=== PATIENT | female | born 1980 | race African-American/Black ===

== ENCOUNTER 2017-09-13 19:05 | Emergency (ER) | payer OTHER ==
[2017-09-13] MEDS ORDERED: Ondansetron HCl/PF 4 MG/2 ML Vial ONE (19:15)
[2017-09-13] MEDS ORDERED: Morphine 4 MG/ML VIAL ONE (19:15)
[2017-09-13 19:42] LABS: #Basophils 0.1 thou/uL (0.0-0.2); #Eosinphils 0.1 thou/uL (0.0-0.7); #Lymphocytes 5.2 thou/uL (1.20-3.40); #Monocytes 0.6 thou/uL (0.11-0.59); #Neutrophils 5.4 thou/uL (1.40-6.50); %Basophils 1.3 % (0.0-1.0); %Lymphocytes 45.7 % (21.0-51.0); %Monocytes 5.1 % (0.0-10.0); Hemoglobin 13.3 g/dL (12.0-16.0); Mean Corpuscular HGB CONC 33.4 g/dL (32.0-36.0); Mean Corpuscular Hemoglobin 28.9 pg (27.0-31.0); Mean Corpuscular Volume 86.6 fl (81.0-99.0); Mean Platelet Volume 8.7 fL (7.4-10.4); Platelet Count 226 thou/uL (130-400); RBC Distribution Width 11.9 % (11.5-14.5); Red Blood Cell (RBC) Count 4.59 mill/uL (4.20-5.40); White Blood Cell (WBC) Count 11.5 thou/uL (4.8-10.8)
[2017-09-13 19:48] LABS: BHCG - Serum Negative (NEGATIVE); Pregs Control Background? CLEAR/WHITE (CLR/WHITE); Pregs Control Bar Appear? YES (CONTROL BAR)
[2017-09-13 20:03] LABS: ALT (SGPT) 45 U/L (8-55); AST (SGOT) 51 U/L (5-34); Albumin 4.5 g/dL (3.5-5.0); Alkaline Phosphatase 68 U/L (40-150); Anion Gap 18 mmol/L (10-20); BUN (Urea Nitrogen) 12 mg/dL (7.0-18.7); Bilirubin, Total 0.3 mg/dL (0.2-1.2); Calc. Creatinine Clearance 0 mL/min (70-130); Carbon Dioxide 20 mmol/L (22-29); Chloride 103 mmol/L (98-107); Estimated GFR-MDRD 86; Globulin 3.3 g/dL (2.4-3.5); Glucose 122 mg/dL (70-105); Lipase 19 U/L (8-78); Potassium 4.2 mmol/L (3.5-5.1); Protein, Total 7.8 g/dL (6.0-8.3); Sodium 137 mmol/L (136-145)
[2017-09-13 21:13] LABS: Bilirubin Negative (Negative); Blood, Urine Negative (Negative); Clarity CLEAR (Clear); Glucose, Urine (Dipstick) Negative (Negative); Leukocyte Negative (Negative); Nitrite Negative (Negative); Protein, Urine (Dipstick) Trace mg/dL (Neg-Trace); Specific Gravity, Urine 1.016 (1.002-1.036); pH, Urine 7.5 (5.0-9.0)
--- NOTE | 2017-09-13 22:17 | CT ---
ABDOMEN AND PELVIC CT SCAN WITHOUT IV CONTRAST: 09/13/17 HISTORY: 37-year-old female with history of right sided abdominal pain, history of prior appendectomy and ooph orectomy. There are some minimal dependent changes noted in the posterior inferior lungs. Borderline sized fatt y liver with some fatty sparring adjacent to the gallbladder. Visualized pancreas, spleen, and adrena l glands are unremarkable. No renal calculus or acute obstruction. There is an approximately 2.5 x 4 cm diameter fairly well circumscribed low attenuation focus in the left adnexal region, evidence f or a left ovarian cyst. IMPRESSION: Fatty changes in the liver. No renal calculus or acute obstruction. No bowel obstruction, abscess adenopathy or abnormal fluid collection. IUD in place within the uterus. Evidence for a left ovarian cyst. POS: [facility]
== END 2017-09-13 21:27 | disposition home or self-care (01) ==
LOC: ERS 19:05
DX: R10.9 Unspecified abdominal pain (principal); I10 Essential (primary) hypertension; F17.210 Nicotine dependence, cigarettes, uncomplicated; Z79.899 Other long term (current) drug therapy
CPT/HCPCS: 36415; 74176; 80053; 81003; 83690; 84703; 85025; 96361; 96374; 96375; J2270; J2405

== ENCOUNTER 2018-05-15 08:56 | Outpatient (CLI) | payer OTHER ==
--- NOTE | 2018-05-15 10:21 | RAD ---
LUMBAR SPINE FOUR VIEW SERIES: Indication: Intervertebral disc disorder with radiculopathy of lumbar region. FINDINGS: Lumbar spine vertebral body heights and alignment are preserved. Flexion and extension views reveal n o obvious translational motion. Incidental note of an intrauterine device along the pelvis. IMPRESSION: No acute osseous abnormality of the lumbar spine. POS: [facility]
--- NOTE | 2018-05-15 12:13 | MRI ---
MRI LUMBAR SPINE WITHOUT CONTRAST: DATE: 05/15/2018. HISTORY: Degenerative disk disease, low back pain with right-sided sciatica. TECHNIQUE: Multiplanar, multisequence MR imaging of the lumbar spine without contrast: FINDINGS: There is an incompletely imaged T2 hyperintense lesion within the left hemipelvis measuring 4.4 cm in greatest dimension. This likely represents a cystic adnexal lesion of left ovary. No focal area of osseous marrow edema is noted on the sagittal STIR imaging. Lumbar vertebral body h eight and alignment appears within normal limits. On the basis of 5 lumbar-type vertebral bodies, conus medullaris terminates at the L1 level. T12-L1: Intervertebral disk height and signal intensity within normal limits with no significant dmitri tral canal or neural foraminal stenosis. L1-2: Intervertebral disk height and signal intensity within normal limits with no significant centr al canal or neural foraminal stenosis. L2-3: Intervertebral disk height and signal intensity within normal limits with no significant centr al canal or neural foraminal stenosis. L3-4: Intervertebral disk height and signal intensity within normal limits with no significant centr al canal or neural foraminal stenosis. L4-5: Intervertebral disk height and signal intensity within normal limits with no significant centr al canal or neural foraminal stenosis. L5-S1: Disk space narrowing and disk desiccation with mild disk bulge. There is a disk extrusion in the central/right paracentral region with inferior migration causing severe right lateral recess balaji nosis and significant right-sided central canal stenosis. This extruded disk measures at least 1.1 c m in AP dimension. No significant neural foraminal stenosis. Imaged retroperitoneal structures demonstrate no acute findings. IMPRESSION: 1. Central/right paracentral disk extrusion at L5-S1 with significant right-sided central canal sten osis/lateral recess stenosis. 2. T2 hyperintense lesion in right hemipelvis. POS: [facility]
== END 2018-05-15 08:57 | disposition home or self-care (01) ==
LOC: BICMRI 08:56
PROVIDERS: ATTEND Nurse Practitioner Family
DX: M51.17 Intervertebral disc disorders with radiculopathy, lumbosacral region (principal); M48.07 Spinal stenosis, lumbosacral region
CPT/HCPCS: 72110; 72148

== ENCOUNTER 2021-01-13 13:52 | Outpatient (CLI) | payer BC | END 2021-01-13 13:53 | disposition home or self-care (01) | LOC: BICMRI 13:52 | PROVIDERS: ATTEND Specialist | DX: M51.17 Intervertebral disc disorders with radiculopathy, lumbosacral region (principal) | CPT/HCPCS: 72148 ==

== ENCOUNTER 2021-10-01 08:40 | Outpatient (CLI) | payer BC ==
[2021-10-01 09:36] LABS: Hemoglobin 11.7 g/dL (12.0-15.5); Mean Corpuscular HGB CONC 31.3 g/dL (32.0-36.0); Mean Corpuscular Hemoglobin 27.3 pg (27.0-33.0); Mean Corpuscular Volume 87.2 fl (81.6-98.3); Mean Platelet Volume 11.2 fl (7.4-10.4); Platelet Count 236 10x3/uL (150-450); RBC Distribution Width 14.8 % (11.5-14.5); Red Blood Cell (RBC) Count 4.29 10x6/uL (3.90-5.03); White Blood Cell (WBC) Count 7.9 10x3/uL (3.5-10.5)
[2021-10-01 09:50] LABS: INR-International Normal Ratio 0.9; PTT 27.2 sec (22.0-33.0)
[2021-10-01 09:53] LABS: Anion Gap 12 mmol/L (10-20); BUN (Urea Nitrogen) 14 mg/dL (7.0-18.7); Calc. Creatinine Clearance 0 mL/min (70-130); Calcium 9.5 mg/dL (7.8-10.44); Carbon Dioxide 26 mmol/L (22-29); Chloride 106 mmol/L (98-107); Glucose 112 mg/dL (70-105); Potassium 4.1 mmol/L (3.5-5.1); Sodium 140 mmol/L (136-145)
[2021-10-01 20:47] LABS: SARS-CoV-2 PCR by NAA Not Detected (NotDetected)
== END 2021-10-01 08:41 | disposition home or self-care (01) ==
LOC: LABBT 08:40
PROVIDERS: ATTEND Surgery
DX: Z01.818 Encounter for other preprocedural examination (principal); M51.16 Intervertebral disc disorders with radiculopathy, lumbar region; Z20.822 Contact with and (suspected) exposure to COVID-19
CPT/HCPCS: 80048; 85027; 85610; 85730; 93005; 93010; U0003; U0005

== ENCOUNTER 2021-10-06 10:35 | Observation (INO) | payer BC ==
[2021-10-06] MEDS ORDERED: Fentanyl 250 MCG/5 ML VIAL ONE (13:03)
[2021-10-06] MEDS ORDERED: Thrombin 5000 UNITS/5 ML VIAL ONE (13:05)
[2021-10-06] MEDS ORDERED: ceFAZolin (BATCH) 2 GM/100 ML BAG ONE (13:14)
[2021-10-06] MEDS ORDERED: Rocuronium Bromide 10 MG/ML (10ML VIAL) ONE (13:24)
[2021-10-06] MEDS ORDERED: Ketorolac Tromethamine 30 MG/ML VIAL ONE (13:24)
[2021-10-06] MEDS ORDERED: Ondansetron PF 4 MG/2 ML Vial ONE (13:24)
[2021-10-06] MEDS ORDERED: Lidocaine 1% PF 5 ML VIAL ONE (13:24)
[2021-10-06] MEDS ORDERED: Glycopyrrolate 0.2 MG/ML 5 ML SYRINGE ONE (13:24)
[2021-10-06] MEDS ORDERED: PROPOFOL 200 MG/20 ML VIAL ONE (13:24)
[2021-10-06] MEDS ORDERED: HYDROcodone/Acetaminophen 7.5/325 mg Tablet PO PRN (15:40)
[2021-10-06] MEDS ORDERED: traMADol HCl 50 MG TAB PO PRN (15:40)
[2021-10-06] MEDS ORDERED: Acetaminophen 325 MG TAB PO PRN (15:40)
[2021-10-06] MEDS ORDERED: Ondansetron PF 4 MG/2 ML Vial IVP PRN (15:40)
[2021-10-06] MEDS ORDERED: Acetaminophen/Codeine 30-300mg Tablet PO PRN (15:40)
[2021-10-06] MEDS ORDERED: hydrALAZINE 20 MG/ML VIAL SLOW IVP PRN (15:42)
[2021-10-06] MEDS ORDERED: tiZANidine HCl 4 MG TAB PO PRN (15:50)
[2021-10-06] MEDS ORDERED: HYDROmorphone 2 MG/ML VIAL SLOW IVP PRN (15:56)
[2021-10-06] MEDS ORDERED: PACU-Morphine 4MG/ML VIAL SLOW IVP PRN (15:56)
[2021-10-06] MEDS ORDERED: Promethazine HCl 25 MG/ML VIAL IM PRN (15:56)
[2021-10-06] MEDS ORDERED: Ketorolac Tromethamine 30 MG/ML VIAL IVP PRN (15:56)
[2021-10-06] MEDS ORDERED: Ondansetron HCl/PF 4 MG/2 ML Vial IVP PRN (15:56)
[2021-10-06] MEDS ORDERED: Promethazine HCl 25 MG/ML VIAL IVPB PRN (15:56)
[2021-10-06] MEDS ORDERED: Morphine Sulfate 2 MG/ML SYRINGE SLOW IVP PRN (15:56)
[2021-10-06] MEDS ORDERED: Meperidine HCl/PF 25 MG/ML VIAL SLOW IVP PRN (15:56)
[2021-10-06] MEDS ORDERED: Fentanyl 100 MCG/2 ML VIAL ONE ×2 (15:57→16:40)
[2021-10-06] MEDS ORDERED: Diazepam 5 MG TAB PO SCH (16:15)
[2021-10-06] MEDS ORDERED: Morphine 4 MG/ML VIAL SLOW IVP PRN (16:15)
[2021-10-06] MEDS ORDERED: Diazepam 5 MG TAB ONE (16:16)
[2021-10-06] MEDS ORDERED: Promethazine HCl 25 MG/ML VIAL ONE (16:41)
[2021-10-06] MEDS: Morphine 2 MG/ML VIAL SLOW IVP PRN ×2 (18:14→19:15)
[2021-10-06] MEDS: Sodium Chloride 0.9% 1,000 ML IV SCH (18:14)
[2021-10-06 18:36] VITALS: BMI 35.2
[2021-10-06] MEDS ORDERED: Pioglitazone HCl 45 MG TAB PO SCH (21:00)
[2021-10-06] MEDS ORDERED: Atorvastatin Calcium 20 MG TAB PO SCH (21:00)
[2021-10-06] MEDS: Gabapentin 300 MG CAP PO SCH (21:51)
[2021-10-06] MEDS: ceFAZolin (BATCH) 2 GM in Premix Bag 1 BAG IVPB SCH (21:55)
[2021-10-07] MEDS: ceFAZolin (BATCH) 2 GM in Premix Bag 1 BAG IVPB SCH (05:59)
[2021-10-07] MEDS: Sodium Chloride 0.9% 1,000 ML IV SCH (06:15)
[2021-10-07] MEDS: Gabapentin 300 MG CAP PO SCH (08:22)
[2021-10-07 08:24] VITALS: BP 107/68
[2021-10-07] MEDS ORDERED: Lisinopril 10 MG TAB PO SCH (09:00)
[2021-10-07] MEDS ORDERED: Alogliptin 25 MG TAB PO SCH (09:00)
[2021-10-07] MEDS ORDERED: Hydrochlorothiazide 25 MG TAB PO SCH (09:00)
[2021-10-07] MEDS ORDERED: Polyethylene Glycol 3350 17 GM Packet PO PRN (09:07)
[2021-10-07] MEDS ORDERED: Docusate 100 MG CAP PO SCH ×2 (09:15→21:00)
[2021-10-07 09:32] VITALS: TEMP 98.1
== END 2021-10-07 12:09 | disposition home or self-care (01) ==
LOC: SDC 10:35 → MSONC 15:40
PROVIDERS: ADMIT Surgery; ATTEND Surgery
PROC: 0SB40ZZ Excision of Lumbosacral Disc, Open Approach (ICD-10-PCS; principal; 2021-10-06)
PROC: 01NA0ZZ Release Lumbosacral Plexus, Open Approach (ICD-10-PCS; 2021-10-06)
DX: M51.17 Intervertebral disc disorders with radiculopathy, lumbosacral region (principal); Z79.84 Long term (current) use of oral hypoglycemic drugs; Z79.899 Other long term (current) drug therapy
CPT/HCPCS: 76000; 96365; 96375; 96376; G0378; J0690; J1885; J2270; J2405; J2550; J2704; J3010; J3370; J7050

== ENCOUNTER 2021-10-29 12:52 | Outpatient (CLI) | payer BC | END 2021-10-29 12:53 | disposition home or self-care (01) | LOC: BICMAMMO 12:52 | PROVIDERS: ATTEND Family Medicine | DX: Z12.31 Encounter for screening mammogram for malignant neoplasm of breast (principal); Z80.3 Family history of malignant neoplasm of breast | CPT/HCPCS: 77063; 77067 ==

== ENCOUNTER 2021-12-29 07:48 | Emergency (ER) | payer BC ==
[2021-12-29 08:07] LABS: #Basophils 0.1 thou/uL (0.0-0.2); #Eosinphils 0.1 thou/uL (0.0-0.7); #Lymphocytes 3.2 thou/uL (1.20-3.40); #Monocytes 0.5 thou/uL (0.11-0.59); #Neutrophils 6.4 thou/uL (1.40-6.50); %Basophils 0.9 % (0.0-1.0); %Eosinophils 0.7 % (0.0-10.0); %Monocytes 4.6 % (0.0-10.0); %Neutrophils 62.8 % (42.0-75.0); Hemoglobin 12.6 g/dL (12.0-16.0); Mean Corpuscular Hemoglobin 29.1 pg (27.0-31.0); Mean Corpuscular Volume 91.1 fL (78.0-98.0); Mean Platelet Volume 8.8 fL (7.4-10.4); Platelet Count 238 thou/uL (130-400); RBC Distribution Width 12.1 % (11.5-14.5); Red Blood Cell (RBC) Count 4.32 mill/uL (4.20-5.40); White Blood Cell (WBC) Count 10.2 thou/uL (4.8-10.8)
[2021-12-29 08:25] LABS: BHCG - Serum Negative (NEGATIVE); Pregs Control Background? CLEAR/WHITE (CLR/WHITE); Pregs Control Bar Appear? YES (CONTROL BAR)
[2021-12-29 08:32] LABS: ALT (SGPT) 16 U/L (8-55); AST (SGOT) 14 U/L (5-34); Albumin 4.3 g/dL (3.5-5.0); Alkaline Phosphatase 80 U/L (40-110); Anion Gap 17 mmol/L (10-20); BUN (Urea Nitrogen) 9 mg/dL (7.0-18.7); Bilirubin, Total 0.7 mg/dL (0.2-1.2); Calc. Creatinine Clearance 0 mL/min (70-130); Calcium 9.7 mg/dL (7.8-10.44); Carbon Dioxide 24 mmol/L (22-29); Chloride 103 mmol/L (98-107); Estimated GFR 83; Globulin 2.8 g/dL (2.4-3.5); Glucose 129 mg/dL (70-105); Lipase 18 U/L (8-78); Potassium 4.5 mmol/L (3.5-5.1); Protein, Total 7.1 g/dL (6.0-8.3); Sodium 139 mmol/L (136-145)
[2021-12-29] MEDS ORDERED: Morphine 4 MG/ML VIAL ONE ×2 (09:35→12:25)
[2021-12-29] MEDS ORDERED: Dicyclomine 20 MG/2 ML VIAL ONE (09:36)
[2021-12-29] MEDS ORDERED: Ondansetron PF 4 MG/2 ML Vial ONE (09:36)
[2021-12-29] MEDS ORDERED: Iopamidol-370 76% 500 ML 1 ML ONE (11:41)
[2021-12-29 13:14] LABS: Bilirubin Negative (Negative); Blood, Urine Negative (Negative); Clarity Clear (Clear); Glucose, Urine (Dipstick) Normal (Negative); Ketone, Urine Negative (Negative); Leukocyte Negative Leu/uL (Negative); Nitrite Negative (Negative); Protein, Urine (Dipstick) 10 mg/dL (Neg-Trace); Urobilinogen Normal mg/dL (Less than 2)
[2021-12-29 13:16] LABS: Specific Gravity, Urine Greater than 1.060 (1.002-1.036)
== END 2021-12-29 13:42 | disposition home or self-care (01) ==
LOC: ERS 07:48
DX: N83.202 Unspecified ovarian cyst, left side (principal); I10 Essential (primary) hypertension; F17.210 Nicotine dependence, cigarettes, uncomplicated; F17.290 Nicotine dependence, other tobacco product, uncomplicated
CPT/HCPCS: 36415; 51701; 74177; 76856; 80053; 81003; 83690; 84703; 85025; 94760; 96361; 96372; 96374; 96375; 96376; J2270; J2405; Q9967

== ENCOUNTER 2024-04-30 11:30 | Outpatient (CLI) | payer BC | END 2024-04-30 11:31 | disposition home or self-care (01) | LOC: BICMAMMO 11:30 | PROVIDERS: ATTEND Family Medicine | DX: Z12.31 Encounter for screening mammogram for malignant neoplasm of breast (principal); Z80.3 Family history of malignant neoplasm of breast | CPT/HCPCS: 77063; 77067 ==